=== PATIENT | male | born 1980 | race Caucasian/White ===

== ENCOUNTER 2017-05-24 14:26 | Emergency (ER) | payer SELFPAY ==
[2017-05-24] MEDS ORDERED: Ketorolac Tromethamine 30 MG/ML VIAL ONE (15:37)
== END 2017-05-24 15:59 | disposition home or self-care (01) ==
LOC: ERS 14:26
DX: M72.2 Plantar fascial fibromatosis (principal)
CPT/HCPCS: 96372; J1885

== ENCOUNTER 2018-12-25 18:43 | Emergency (ER) | payer BC, SELFPAY ==
[2018-12-25 19:19] LABS: Bilirubin Negative (Negative); Blood, Urine Trace (Negative); Clarity CLEAR (Clear); Glucose, Urine (Dipstick) Negative (Negative); Leukocyte Negative (Negative); Nitrite Negative (Negative); Protein, Urine (Dipstick) Trace mg/dL (Neg-Trace); Urobilinogen 0.2 mg/dL (0.2-1.0); pH, Urine 5.5 (5.0-9.0)
[2018-12-25 19:21] LABS: Bacteria/HPF None Seen HPF (None Seen); Hyaline Casts/LPF 0-3 HYALINE CAST LPF (0-3 Hyaline); Pathc Cast-AUWi Flag 0.13 (0-2.49); RBC/HPF 0-3 HPF (0-3); Squamous Epithelial None Seen HPF (0-3)
[2018-12-25 19:57] LABS: #Basophils 0.1 thou/uL (0.0-0.2); #Eosinphils 0.1 thou/uL (0.0-0.7); #Lymphocytes 3.5 thou/uL (1.20-3.40); #Monocytes 0.9 thou/uL (0.11-0.59); #Neutrophils 5.6 thou/uL (1.40-6.50); %Basophils 0.6 % (0.0-1.0); %Eosinophils 1.2 % (0.0-10.0); %Lymphocytes 34.5 % (21.0-51.0); %Monocytes 8.9 % (0.0-10.0); %Neutrophils 54.8 % (42.0-75.0); Hemoglobin 15.2 g/dL (14.0-18.0); Mean Corpuscular HGB CONC 34.4 g/dL (32.0-36.0); Mean Corpuscular Hemoglobin 32.1 pg (27.0-31.0); Mean Corpuscular Volume 93.2 fL (78.0-98.0); Platelet Count 265 thou/uL (130-400); RBC Distribution Width 12.1 % (11.5-14.5); Red Blood Cell (RBC) Count 4.74 mill/uL (4.70-6.10); White Blood Cell (WBC) Count 10.2 thou/uL (4.8-10.8)
[2018-12-25 20:03] LABS: Prothrombin Time 13.5 SEC (12.0-14.7)
[2018-12-25] MEDS ORDERED: Ketorolac Tromethamine 30 MG/ML VIAL ONE (20:18)
[2018-12-25 20:22] LABS: ALT (SGPT) 32 U/L (8-55); AST (SGOT) 19 U/L (5-34); Albumin 4.4 g/dL (3.5-5.0); Alkaline Phosphatase 92 U/L (40-150); Anion Gap 11 mmol/L (10-20); BUN (Urea Nitrogen) 13 mg/dL (8.9-20.6); Bilirubin, Total 0.3 mg/dL (0.2-1.2); Calc. Creatinine Clearance 0 mL/min (70-130); Calcium 9.8 mg/dL (7.8-10.44); Carbon Dioxide 25 mmol/L (22-29); Chloride 107 mmol/L (98-107); Estimated GFR-MDRD 73; Globulin 2.8 g/dL (2.4-3.5); Glucose 89 mg/dL (70-105); Potassium 4.1 mmol/L (3.5-5.1); Protein, Total 7.2 g/dL (6.0-8.3); Sodium 139 mmol/L (136-145)
--- NOTE | 2018-12-25 20:54 | CT ---
CT of abdomen and pelvis: 12/25/2018 COMPARISON: None HISTORY: Bilateral flank pain, intermittent hematuria TECHNIQUE: Axial CT imaging at 5 mm intervals from lung bases through pubic symphysis without contras t. Coronal reformatted imaging obtained. FINDINGS: Lack of contrast media limits assessment of the viscera, bowel, vascular structures, and fo r lymphadenopathy. The imaged lung bases are unremarkable. No free intraperitoneal air or fluid. The liver, spleen, gallbladder, pancreas, and adrenal glands demonstrate no acute findings. 3-4 punct ate nonobstructing left intrarenal calculi are noted. No discrete intrarenal calculus noted on the right. No evidence for obstructive uropathy on either side. Limited assessment of the bowel demonstrates no acute findings. Review of the osseous structures demonstrates no worrisome lytic or blastic bone lesion. There is mul tilevel lumbar spine degenerative change with lateral and posterior osteophyte formation as well as multilevel facet hypertrophy. IMPRESSION: Multiple nonobstructing left renal calculi with no evidence of obstructive uropathy.
== END 2018-12-25 21:47 | disposition home or self-care (01) ==
LOC: ERS 18:43
DX: N20.1 Calculus of ureter (principal); F41.9 Anxiety disorder, unspecified; F31.9 Bipolar disorder, unspecified; F17.290 Nicotine dependence, other tobacco product, uncomplicated
CPT/HCPCS: 74176; 80053; 81003; 81015; 85025; 85610; 85730; 96374; J1885

== ENCOUNTER 2019-10-01 06:38 | Emergency (ER) | payer BC ==
[2019-10-01 07:10] LABS: #Basophils 0.1 thou/uL (0.0-0.2); #Eosinphils 0.1 thou/uL (0.0-0.7); #Lymphocytes 2.6 thou/uL (1.20-3.40); #Neutrophils 6.3 thou/uL (1.40-6.50); %Basophils 0.8 % (0.0-1.0); %Eosinophils 0.9 % (0.0-10.0); %Lymphocytes 25.7 % (21.0-51.0); %Monocytes 10.2 % (0.0-10.0); %Neutrophils 62.4 % (42.0-75.0); Hemoglobin 15.9 g/dL (14.0-18.0); Mean Corpuscular HGB CONC 31.3 g/dL (32.0-36.0); Mean Corpuscular Hemoglobin 29.3 pg (27.0-31.0); Mean Corpuscular Volume 93.6 fL (78.0-98.0); Platelet Count 337 thou/uL (130-400); RBC Distribution Width 11.9 % (11.5-14.5); Red Blood Cell (RBC) Count 5.42 mill/uL (4.70-6.10); White Blood Cell (WBC) Count 10.1 thou/uL (4.8-10.8)
[2019-10-01] MEDS ORDERED: Ketorolac Tromethamine 30 MG/ML VIAL ONE (07:23)
[2019-10-01] MEDS ORDERED: Aspirin Chewable 81 MG TAB ONE (07:23)
[2019-10-01 07:33] LABS: ALT (SGPT) 35 U/L (8-55); AST (SGOT) 29 U/L (5-34); Alkaline Phosphatase 95 U/L (40-110); Anion Gap 16 mmol/L (10-20); BUN (Urea Nitrogen) 12 mg/dL (8.9-20.6); Bilirubin, Total 0.5 mg/dL (0.2-1.2); CK (CPK) 379 U/L (30-200); Calc. Creatinine Clearance 0 mL/min (70-130); Calcium 10.5 mg/dL (7.8-10.44); Carbon Dioxide 27 mmol/L (22-29); Chloride 104 mmol/L (98-107); Estimated GFR-MDRD 53; Globulin 3.2 g/dL (2.4-3.5); Glucose 77 mg/dL (70-105); Potassium 3.6 mmol/L (3.5-5.1); Protein, Total 8.2 g/dL (6.0-8.3); Sodium 143 mmol/L (136-145)
--- NOTE | 2019-10-01 08:26 | RAD ---
Exam: Chest one view HISTORY:Chest pain, x3 days Comparison: 08/04/2003 FINDINGS: Cardiac silhouette: Normal Aorta: Unremarkable Pulmonary vessels: Normal Costophrenic angles: Clear LUNGS: No masses or consolidation. Pneumothorax: None Osseous abnormalities: None IMPRESSION: No acute cardiopulmonary process.
== END 2019-10-01 09:56 | disposition home or self-care (01) ==
LOC: ERS 06:38
DX: R07.89 Other chest pain (principal); I10 Essential (primary) hypertension; E78.00 Pure hypercholesterolemia, unspecified; F41.9 Anxiety disorder, unspecified; F31.9 Bipolar disorder, unspecified; F17.220 Nicotine dependence, chewing tobacco, uncomplicated; Z79.899 Other long term (current) drug therapy
CPT/HCPCS: 71045; 80053; 82550; 84484; 85025; 93005; 94760; 96361; 96374; J1885

== ENCOUNTER 2019-12-18 21:21 | Emergency (ER) | payer BC, SELFPAY ==
--- NOTE | 2019-12-18 22:12 | RAD ---
Exam:3 views left ankle HISTORY: Trauma. Pain. COMPARISON: None FINDINGS: Trimalleolar fracture. Fracture extends into the tibial plafond. Associated soft tissue swe lling and deformity. IMPRESSION: Trimalleolar fracture. Fracture lucency extends into the tibial plafond. Left tibia-fibul a radiograph is recommended to exclude proximal injury.
--- NOTE | 2019-12-18 22:12 | RAD ---
Exam: Chest one view HISTORY:Chest pain Comparison: 10/01/2019 FINDINGS: Cardiac silhouette: Normal Aorta: Unremarkable Pulmonary vessels: Normal Costophrenic angles: Clear LUNGS: No masses or consolidation. Pneumothorax: None Osseous abnormalities: None IMPRESSION: No acute cardiopulmonary process.
[2019-12-18 22:26] LABS: #Basophils 0.1 thou/uL (0.0-0.2); #Eosinphils 0.1 thou/uL (0.0-0.7); #Lymphocytes 2.8 thou/uL (1.20-3.40); #Monocytes 1.7 thou/uL (0.11-0.59); #Neutrophils 9.1 thou/uL (1.40-6.50); %Basophils 0.6 % (0.0-1.0); %Eosinophils 0.4 % (0.0-10.0); %Lymphocytes 20.3 % (21.0-51.0); %Monocytes 12.2 % (0.0-10.0); %Neutrophils 66.4 % (42.0-75.0); Mean Corpuscular HGB CONC 34.3 g/dL (32.0-36.0); Mean Corpuscular Hemoglobin 32.5 pg (27.0-31.0); Mean Corpuscular Volume 94.8 fL (78.0-98.0); Platelet Count 313 thou/uL (130-400); RBC Distribution Width 12.1 % (11.5-14.5); Red Blood Cell (RBC) Count 3.98 mill/uL (4.70-6.10); White Blood Cell (WBC) Count 13.8 thou/uL (4.8-10.8)
[2019-12-18 22:47] LABS: ALT (SGPT) 26 U/L (8-55); AST (SGOT) 22 U/L (5-34); Albumin 4.2 g/dL (3.5-5.0); Alkaline Phosphatase 74 U/L (40-110); Anion Gap 12 mmol/L (10-20); BUN (Urea Nitrogen) 16 mg/dL (8.9-20.6); Bilirubin, Total 0.3 mg/dL (0.2-1.2); Calc. Creatinine Clearance 0 mL/min (70-130); Calcium 9.3 mg/dL (7.8-10.44); Carbon Dioxide 22 mmol/L (22-29); Chloride 110 mmol/L (98-107); Estimated GFR-MDRD 48; Globulin 2.5 g/dL (2.4-3.5); Glucose 126 mg/dL (70-105); Potassium 3.8 mmol/L (3.5-5.1); Protein, Total 6.7 g/dL (6.0-8.3); Sodium 140 mmol/L (136-145)
[2019-12-18] MEDS ORDERED: Ketamine 50 MG/ML (10ML VIAL) ONE (23:02)
[2019-12-18] MEDS ORDERED: Ondansetron PF 4 MG/2 ML Vial ONE (23:17)
[2019-12-18] MEDS ORDERED: Ketorolac Tromethamine 30 MG/ML VIAL ONE (23:58)
--- NOTE | 2019-12-18 23:58 | RAD ---
Exam:2 views left tibia fibula HISTORY: Bimalleolar fracture COMPARISON: None FINDINGS: Trimalleolar fracture is demonstrated. Limited evaluation due to overlying fiberglass cast. No evidence of a proximal or mid tibia/fibular fracture. IMPRESSION: Trimalleolar fracture. No evidence of a proximal tibia or fibula fracture.
--- NOTE | 2019-12-18 23:59 | RAD ---
Exam:3 views left ankle HISTORY: Trimalleolar fracture. Status post reduction. COMPARISON: 12/18/2019 FINDINGS: Overlying fiberglass cast is noted. No significant change in alignment. Trimalleolar fractu re and soft tissue swelling do remain. IMPRESSION: 1. No significant change in alignment. Redemonstration of trimalleolar fracture. 2. Interval casting.
[2019-12-19] MEDS ORDERED: HYDROcodone/Acetaminophen 10/325 mg Tablet ONE (00:08)
== END 2019-12-19 00:23 | disposition home or self-care (01) ==
LOC: ERS 21:21
DX: S82.852A Displaced trimalleolar fracture of left lower leg, initial encounter for closed fracture (principal); S20.212A Contusion of left front wall of thorax, initial encounter; I10 Essential (primary) hypertension; E78.00 Pure hypercholesterolemia, unspecified; F41.9 Anxiety disorder, unspecified; F31.9 Bipolar disorder, unspecified; F17.200 Nicotine dependence, unspecified, uncomplicated; Z79.899 Other long term (current) drug therapy; W07.XXXA Fall from chair, initial encounter
CPT/HCPCS: 27818; 36415; 71045; 80053; 85025; 96361; 96374; 96375; 96376; 99152; J1885; J2405

== ENCOUNTER 2019-12-19 16:08 | Emergency (ER) | payer SELFPAY ==
[2019-12-19] MEDS ORDERED: Ketorolac Tromethamine 30 MG/ML VIAL ONE (17:00)
== END 2019-12-19 17:20 | disposition home or self-care (01) ==
LOC: ERS 16:08
DX: M25.572 Pain in left ankle and joints of left foot (principal); S82.852D Displaced trimalleolar fracture of left lower leg, subsequent encounter for closed fracture with routine healing; I10 Essential (primary) hypertension; E78.00 Pure hypercholesterolemia, unspecified; F41.9 Anxiety disorder, unspecified; F31.9 Bipolar disorder, unspecified; F17.200 Nicotine dependence, unspecified, uncomplicated; Z79.899 Other long term (current) drug therapy; W07.XXXD Fall from chair, subsequent encounter
CPT/HCPCS: 96372; 99283; J1885

== ENCOUNTER 2019-12-28 06:34 | Outpatient (CLI) | payer BC, OTHER ==
[2019-12-28 11:03] LABS: #Basophils 0.1 thou/uL (0.0-0.2); #Eosinphils 0.1 thou/uL (0.0-0.7); #Lymphocytes 2.4 thou/uL (1.20-3.40); #Monocytes 0.7 thou/uL (0.11-0.59); #Neutrophils 8.4 thou/uL (1.40-6.50); %Basophils 0.6 % (0.0-1.0); %Eosinophils 0.6 % (0.0-10.0); %Lymphocytes 20.8 % (21.0-51.0); %Monocytes 6.3 % (0.0-10.0); %Neutrophils 71.8 % (42.0-75.0); Hemoglobin 14.3 g/dL (14.0-18.0); Mean Corpuscular HGB CONC 34.7 g/dL (32.0-36.0); Mean Corpuscular Hemoglobin 32.4 pg (27.0-31.0); Mean Corpuscular Volume 93.5 fL (78.0-98.0); Mean Platelet Volume 7.6 fL (7.4-10.4); Platelet Count 416 thou/uL (130-400); RBC Distribution Width 11.7 % (11.5-14.5); Red Blood Cell (RBC) Count 4.41 mill/uL (4.70-6.10); White Blood Cell (WBC) Count 11.7 thou/uL (4.8-10.8)
[2019-12-28 17:21] LABS: SARS-CoV-2 MS2 Positive; SARS-CoV-2 N Gene Negative; SARS-CoV-2 S Gene Negative; SARS-CoV-2 orf1ab Negative
--- NOTE | 2020-01-02 15:53 | EKG ---
Test Reason : Blood Pressure : / mmHG Vent. Rate : 129 BPM Atrial Rate : 129 BPM P-R Int : 124 ms QRS Dur : 086 ms QT Int : 306 ms P-R-T Axes : 069 091 032 degrees QTc Int : 448 ms Sinus tachycardia Rightward axis Nonspecific ST abnormality Abnormal ECG When compared with ECG of 01-OCT-2019 06:45, No significant change was found Confirmed by BERNIE CONNELL (2) on 01/02/2020 3:53:21 PM Referred By: JULY Confirmed By:BERNIE CONNELL
== END 2019-12-28 06:35 | disposition home or self-care (01) ==
LOC: LABBT 06:34
PROVIDERS: ATTEND Orthopaedic Surgery
DX: Z01.818 Encounter for other preprocedural examination (principal); Z11.59 Encounter for screening for other viral diseases; S82.852A Displaced trimalleolar fracture of left lower leg, initial encounter for closed fracture
CPT/HCPCS: 85025; 87635; 93005; 93010; U0003

== ENCOUNTER 2019-12-31 11:24 | Day surgery (SDC) | payer BC ==
[2019-12-28 09:54] VITALS: BMI 31.1
[2019-12-31] MEDS ORDERED: Clindamycin/D5W 600 mg/50 ml Premix Bag ONE (11:41)
[2019-12-31] MEDS ORDERED: Ropivacaine 0.2% HCl/PF (40 MG/20 ML VIAL) ONE (11:48)
[2019-12-31] MEDS ORDERED: PHENYLEPHRINE-NS 100 MCG/ML 10 ML SYRINGE ONE (11:48)
[2019-12-31] MEDS ORDERED: Bupivacaine HCl 0.5%/Epinephrine 1:200,000/PF 30 ml Vial ONE (11:48)
[2019-12-31] MEDS ORDERED: Ketorolac Tromethamine 30 MG/ML VIAL ONE ×2 (11:48→15:52)
[2019-12-31] MEDS ORDERED: Ondansetron PF 4 MG/2 ML Vial ONE (11:48)
[2019-12-31] MEDS ORDERED: Dexamethasone 20 MG/5 ML VIAL ONE (11:48)
[2019-12-31] MEDS ORDERED: PROPOFOL 200 MG/20 ML VIAL ONE (11:48)
[2019-12-31] MEDS ORDERED: Fentanyl 100 MCG/2 ML VIAL ONE ×4 (13:01→16:32)
[2019-12-31] MEDS ORDERED: Midazolam HCl 2 mg/2 ml Vial ONE ×2 (13:01→13:06)
[2019-12-31] MEDS ORDERED: Lidocaine 2% Jelly 5 ML TUBE ONE (13:06)
[2019-12-31] MEDS ORDERED: Phenylephrine 10 MG/ML VIAL ONE (14:01)
[2019-12-31] MEDS ORDERED: Zolpidem Tartrate 5 MG TAB PO PRN (16:02)
[2019-12-31] MEDS ORDERED: Ketorolac Tromethamine 30 MG/ML VIAL IVP PRN (16:02)
[2019-12-31] MEDS ORDERED: Ropivacaine 0.2% 550 ML 550 ML NERVE BLCK SCH (16:02)
[2019-12-31] MEDS ORDERED: Fentanyl 100 MCG/2 ML VIAL IV PRN (16:02)
[2019-12-31] MEDS ORDERED: Ondansetron PF 4 MG/2 ML Vial IVP PRN (16:02)
[2019-12-31] MEDS ORDERED: Acetaminophen 325 MG TAB PO PRN (16:02)
[2019-12-31] MEDS ORDERED: Promethazine HCl 25 MG/ML VIAL IM PRN (16:02)
[2019-12-31] MEDS ORDERED: HYDROcodone/Acetaminophen 10/325 mg Tablet PO PRN ×2 (16:02)
[2019-12-31] MEDS ORDERED: traMADol HCl 50 MG TAB PO PRN ×2 (16:02)
--- NOTE | 2019-12-31 16:19 | RAD ---
SIX INTRAOPERATIVE FLUOROSCOPIC IMAGES LEFT ANKLE: 12/31/19 HISTORY: Internal fixation of left ankle fractures. COMPARISON: Views left ankle on 12/18/19. FINDINGS: Intraoperative fluoroscopic images demonstrate internal fixation of fractures involving the distal le ft tibia and fibula. A lateral plate and multiple screws transfix the fracture of the lateral malleol us with screws transfixing the fracture of the medial malleolus as well as posterior malleolus. There is improvement in alignment of the fracture fragments. No hardware complications seen. Correlation w ith intraoperative findings is recommended. IMPRESSION: Internal fixation of trimalleolar fracture left ankle. POS: ELENO
--- NOTE | 2019-12-31 22:35 | OP ---
DATE OF PROCEDURE: 12/31/2019 PREOPERATIVE DIAGNOSIS: Left trimalleolar ankle fracture dislocation. POSTOPERATIVE DIAGNOSIS: Left trimalleolar ankle fracture dislocation. PROCEDURES PERFORMED: 1. Open reduction and internal fixation of trimalleolar ankle fracture. 2. Short-leg splint. PAPER COATING SUPERVISOR: Dannie Mcfarland. ANESTHESIOLOGIST: Dr. Mendenhall. ANESTHESIA: The patient received a general endotracheal intubation with sciatic catheter and an adductor. ESTIMATED BLOOD LOSS: 50 to 75 mL. TOURNIQUET TIME: 120 minutes at 300 mmHg. ANTIBIOTICS: Clindamycin 600. IMPLANTS: Synthes 2.7 variable-angle ACP plate with five holes, four 2.7 locking screws, one 3.5 cortical screw and two 2.7 shaft screws. The patient had four 4.0 cannulated screws. COMPLICATIONS: None. HISTORY OF PRESENT ILLNESS: Mr. Ambrosio is a pleasant 39-year-old male, status post fall. The patient sustains a trimalleolar ankle fracture with too much swelling, was brought back for ORIF today of his trimalleolar. I discussed the risks and benefits of surgery to include pain, scar, bleeding, infection, decreased range of motion and strength, arthritis, damage to vital structures, blood clots, loss of life or limb, and wound complication. He understood the risks and benefits of procedure and elected to proceed. DESCRIPTION OF PROCEDURE: Time-out was performed designating the patient's left lower extremity as the operative site based on site, consent, and marking. After time-out, the patient's lower extremity was prepped and draped in sterile fashion. Tourniquet was brought up and left up for 120 minutes. I made a lateral incision down to the fibula, dissected bluntly proximally. Coming down on to the bone, we exposed proximally and distally and used the variable angle 2.7 plate to help to press the bone in position. We used a clamp proximally to crush the plate into position. Given the comminution, I felt that it was the best fit for his bone. We placed one 3.5 cortical screw into the shaft and we placed four 2.7 locking screws distally. We then came back and placed two more 2.7 cortical screws proximally, had good overall fixation. We immediately made an oblique incision over the skin, dissected down past the saphenous, which was retracted out of the way and exposed the medial malleolus, in fact a little bit posterior, which was advantageous. We cleared out the fracture line, made first a drill hole and clamped across, placed two K-wires under fluoroscopic guidance, drilled and placed two 40 mm, 4.0 screws. Being happy with our reduction, we then moved to the posterior malleolus. At this point, we noted that there was still some elevation posteriorly given chronicity and might have subluxed and was not really reducible or mobile. First, we started just posterior to the fibula, which was not as affected, but we moved medially and actually elevated the tendons, bluntly dissected down the fracture plane, mobilized it and then moved it down, clamped across with a [id number] reduction on the cortex. We then under fluoroscopic guidance, bluntly dissected down anteriorly and placed two 4.0 screws with K-wires looking A to P in our position, trying to stay away from the vessel as well as make sure we were on bone and then also distanced it posteriorly, placed 42 and 44 mm screws. We had overall good position. We had a good arc of the articular surface. We had liked our reduction. We then washed and we closed with 0, 2-0, and 3-0 nylon. The patient will be placed in a posterior splint and will be discharged to home with followup in 2 weeks. I will keep the patient nonweightbearing likely for a minimum of eight weeks. Job ID: [id number]
[2020-01-01] MEDS ORDERED: Midazolam HCl 2 mg/2 ml Vial ONE (07:09)
[2020-01-01] MEDS ORDERED: Fentanyl 100 MCG/2 ML VIAL ONE (07:09)
== END 2019-12-31 18:05 | disposition home or self-care (01) ==
LOC: SDC 11:24
PROVIDERS: ATTEND Orthopaedic Surgery
PROC: 0QSH04Z Reposition Left Tibia with Internal Fixation Device, Open Approach (ICD-10-PCS; principal; 2019-12-31)
DX: S82.852A Displaced trimalleolar fracture of left lower leg, initial encounter for closed fracture (principal); I10 Essential (primary) hypertension; F17.220 Nicotine dependence, chewing tobacco, uncomplicated; Z79.899 Other long term (current) drug therapy; Z88.0 Allergy status to penicillin
CPT/HCPCS: 76000; A4306; C1713; C1769; J0670; J1100; J1885; J2250; J2370; J2405; J2704; J2795; J3010; J3490

== ENCOUNTER 2021-06-13 23:59 | Emergency (ER) | payer BC | END 2021-06-14 01:07 | disposition left against medical advice (07) | LOC: ERS 23:59 | DX: Z53.21 Procedure and treatment not carried out due to patient leaving prior to being seen by health care provider (principal) ==

== ENCOUNTER 2022-12-18 17:01 | Emergency (ER) | payer BC ==
[2022-12-18 18:40] LABS: #Basophils 0.1 thou/uL (0.0-0.2); #Eosinphils 0.1 thou/uL (0.0-0.7); #Lymphocytes 3.2 thou/uL (1.20-3.40); #Monocytes 0.9 thou/uL (0.11-0.59); #Neutrophils 7.2 thou/uL (1.40-6.50); %Basophils 1.2 % (0.0-1.0); %Eosinophils 0.9 % (0.0-10.0); %Lymphocytes 27.4 % (21.0-51.0); %Monocytes 7.6 % (0.0-10.0); %Neutrophils 62.9 % (42.0-75.0); Hemoglobin 15.3 g/dL (14.0-18.0); Mean Corpuscular HGB CONC 34.8 g/dL (32.0-36.0); Mean Corpuscular Hemoglobin 33.4 pg (27.0-31.0); Mean Corpuscular Volume 95.8 fl (78.0-98.0); Mean Platelet Volume 8.5 fL (7.4-10.4); Platelet Count 287 10x3/uL (130-400); RBC Distribution Width 12.1 % (11.5-14.5); Red Blood Cell (RBC) Count 4.59 mill/uL (4.70-6.10); White Blood Cell (WBC) Count 11.5 10x3/uL (4.8-10.8)
[2022-12-18 19:01] LABS: ALT (SGPT) 27 U/L (8-55); AST (SGOT) 26 U/L (5-34); Albumin 4.5 g/dL (3.5-5.0); Alkaline Phosphatase 98 U/L (40-110); Anion Gap 14 mmol/L (10-20); BUN (Urea Nitrogen) 13 mg/dL (8.9-20.6); Bilirubin, Total 0.2 mg/dL (0.2-1.2); CK (CPK) 302 U/L (30-200); Calc. Creatinine Clearance 0 mL/min (70-130); Carbon Dioxide 19 mmol/L (22-29); Chloride 109 mmol/L (98-107); Estimated GFR 60; Globulin 2.9 g/dL (2.4-3.5); Glucose 97 mg/dL (70-105); Lipase 62 U/L (8-78); Potassium 4.1 mmol/L (3.5-5.1); Protein, Total 7.4 g/dL (6.0-8.3); Sodium 138 mmol/L (136-145)
[2022-12-18] MEDS ORDERED: Ketorolac Tromethamine 30 MG/ML VIAL ONE (19:51)
[2022-12-18] MEDS ORDERED: Acetaminophen 500 MG TAB ONE (19:51)
[2022-12-18 20:52] LABS: Troponin I Less than 0.010 ng/mL (< 0.028)
== END 2022-12-18 21:09 | disposition home or self-care (01) ==
LOC: ERS 17:01
DX: R07.9 Chest pain, unspecified (principal); I10 Essential (primary) hypertension; E78.00 Pure hypercholesterolemia, unspecified; F17.220 Nicotine dependence, chewing tobacco, uncomplicated; Z79.899 Other long term (current) drug therapy
CPT/HCPCS: 36415; 71045; 80053; 82550; 83690; 83735; 83880; 84484; 85025; 85379; 93005; 96372; J1885